=== PATIENT | female | born 1985 | race African-American/Black ===

== ENCOUNTER 2018-04-26 18:26 | Emergency (ER) | payer MEDICAID, OTHER ==
[~2018-04-26] VITALS: Ht 167.6 cm; Wt 62.1 kg
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
[2018-04-26 19:04] VITALS: BP 115/66
--- NOTE | 2018-04-26 19:12 | NUR ---
HAND-OFF: Report given to Matthias Ramos RN .
[2018-04-26 21:04] VITALS: BP 113/65
[2018-04-26] MEDS ORDERED: TYLENOL EXTRA500 MG ORAL (21:14)
--- NOTE | 2018-04-26 21:21 | NUR ---
ED Nurse Note: Pt is DC per ERMD orders. pt is alert and oriented times 4 and understands all DC notes and instructions. pt is instructed to follow up with main provider as soon as possible. pt is instructed to return to ER is any variance in condition. pt left with all belongings as well as DC notes and instructions. pt vital signs, condition and status is reported to ERMD prior to DC. pt is stable for DC. pt vital signs is stable. pt is able to ambulate. pt ID band removed.
[2018-04-26 21:22] VITALS: BP 114/64
--- NOTE | 2018-04-27 11:55 | Diagnostic Imaging Report ---
Indication:Abdominal pain Technique: Grayscale and duplex Doppler imaging of the abdomen performed. Comparison: None Findings: The liver is unremarkable. The gallbladder is unremarkable. The demonstrated part of the pancreas, aorta and IVC show no abnormalities. Both kidneys appear unremarkable. The spleen is normal in size. There is no biliary ductal dilatation identified. Doppler evaluation of the main portal vein shows patency. There is no ascites. No hydronephrosis seen. CBD is 2 mm. Impression: No acute findings.
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
== END 2018-04-26 21:30 | disposition home or self-care (01) ==
LOC: EDBD 18:26 → EMR 21:27
DX: O26.892 Other specified pregnancy related conditions, second trimester (principal); Z3A.20 20 weeks gestation of pregnancy; R10.30 Lower abdominal pain, unspecified; Z88.6 Allergy status to analgesic agent
CPT/HCPCS: 76700; 76810; 99284